=== PATIENT | female | born 2000 | race Two or more races ===

== ENCOUNTER 2021-03-28 13:52 | Emergency (ER) | payer MEDICAID ==
[~2021-03-28] VITALS: Ht 167.6 cm; Wt 54.5 kg
[2021-03-28] MEDS ORDERED: FAMOTIDINE 20MG/2ML VIAL IV STA (14:49)
[2021-03-28 14:57] LABS: CLARITY URINE CLEAR (CLEAR); COLOR URINE YELLOW (YELLOW); KETONES URINE NEGATIVE (NEGATIVE); LEUKOCYTE ESTERASE URINE 1+ (NEGATIVE); NITRITE URINE NEGATIVE (NEGATIVE); OCCULT BLOOD URINE NEGATIVE (NEGATIVE); PH URINE 7.5 (4.5-8.0); PROTEIN URINE NEGATIVE (NEGATIVE); UROBILINOGEN URINE 0.2 E.U./dL (0.2-1.0)
[2021-03-28] MEDS ORDERED: SODIUM CHLORIDE 0.9% 1,000 ML IV ONE (15:00)
[2021-03-28 15:05] LABS: CHLORIDE 108 mEq/L (98-107)
[2021-03-28 15:12] LABS: INR 1.1; PROTHROMBIN TIME 11.4 sec (9.6-11.0)
[2021-03-28 15:30] LABS: BASOPHILS % 0.4 % (0.0-2.0); EOSINOPHILS % 2.9 % (0.0-5.0); HEMATOCRIT. 35.2 % (36.0-48.0); HEMOGLOBIN. 12.6 g/dL (12.0-16.0); LYMPHOCYTES % 29.1 % (20.0-50.0); MEAN CORPUSCULAR HEMOGLOBIN 33.2 pg (28.0-32.0); MEAN CORPUSCULAR VOLUME 92.7 fL (81.0-99.0); MONOCYTES % 8.1 % (2.0-8.0); NEUTROPHILS % 59.5 % (40.0-76.0); PLATELET 195 x1000/uL (130-400); RED CELL DISTRIBUTION WIDTH 12.3 % (11.6-14.6)
[2021-03-28] MEDS ORDERED: POLY119P2 MT (15:37)
[2021-03-28] MEDS ORDERED: ONDA4TAB5 MT (15:37)
[2021-03-28] MEDS ORDERED: OMEP20CA14 MT (15:37)
[2021-03-28 15:52] LABS: HCG SCREEN NEGATIVE
[2021-03-28 17:16] VITALS: BP 102/52
== END 2021-03-28 17:09 | disposition home or self-care (01) ==
LOC: ER 14:36
DX: R10.13 Epigastric pain (principal); R11.2 Nausea with vomiting, unspecified; K59.09 Other constipation; E86.0 Dehydration; Z79.899 Other long term (current) drug therapy
CPT/HCPCS: 36415; 80053; 81003; 81025; 83690; 84703; 85025; 85610; 96361; 96374; 99283; J3490; Z7610

== ENCOUNTER 2021-06-10 20:01 | Emergency (ER) | payer MEDICAID ==
[~2021-06-10] VITALS: Ht 154.9 cm; Wt 55.2 kg
[~2021-06-10 20:01] MED LIST: OMEP20CA14 MT; ONDA4TAB5 MT; POLY119P2 MT
[2021-06-11] MEDS ORDERED: SODIUM CHLORIDE 0.9% 1,000 ML IV ONE (01:30)
[2021-06-11 01:38] LABS: CLARITY URINE CLEAR (CLEAR); COLOR URINE YELLOW (YELLOW); KETONES URINE NEGATIVE (NEGATIVE); LEUKOCYTE ESTERASE URINE TRACE (NEGATIVE); NITRITE URINE NEGATIVE (NEGATIVE); OCCULT BLOOD URINE 3+ (NEGATIVE); PH URINE 6.5 (4.5-8.0); PROTEIN URINE NEGATIVE (NEGATIVE); SPECIFIC GRAVITY URINE 1.008 (1.005-1.030); UROBILINOGEN URINE 0.2 E.U./dL (0.2-1.0)
[2021-06-11 02:01] LABS: BASOPHILS % 0.5 % (0.0-2.0); EOSINOPHILS % 2.6 % (0.0-5.0); HEMATOCRIT. 35.9 % (36.0-48.0); HEMOGLOBIN. 12.5 g/dL (12.0-16.0); LYMPHOCYTES % 43.3 % (20.0-50.0); MEAN CORPUSCULAR HEMOGLOBIN 31.8 pg (28.0-32.0); MEAN CORPUSCULAR VOLUME 91.6 fL (81.0-99.0); MEAN PLATELET VOLUME 9.7 fl (7.4-10.4); NEUTROPHILS % 44.6 % (40.0-76.0); PLATELET 220 x1000/uL (130-400); RED BLOOD CELL COUNT 3.92 mill/uL (4.2-5.4); RED CELL DISTRIBUTION WIDTH 12.4 % (11.6-14.6)
[2021-06-11 02:02] LABS: CHLORIDE 110 mEq/L (98-107)
[2021-06-11 02:13] LABS: B-HCG QUANTITATIVE < 1 mIU/mL (<3)
[2021-06-11 03:30] VITALS: BP 93/56
[2021-06-11] MEDS ORDERED: IBUP-2028 MT (03:52)
== END 2021-06-11 04:23 | disposition home or self-care (01) ==
LOC: ER 20:01
DX: N83.201 Unspecified ovarian cyst, right side (principal); N84.0 Polyp of corpus uteri
CPT/HCPCS: 36415; 76830; 76856; 80053; 81003; 81025; 84702; 85025; 86850; 86900; 86901; 96360; 99284; J7030